=== PATIENT | male | born 1965 | race Hispanic/Latino ===

== ENCOUNTER 2017-11-28 08:52 | Outpatient (CLI) | payer OTHER ==
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
== END 2017-11-28 08:53 | disposition home or self-care (01) ==
LOC: SCSMRI 08:52
PROVIDERS: ATTEND Orthopaedic Surgery Hand Surgery
DX: M79.2 Neuralgia and neuritis, unspecified (principal); M77.8 Other enthesopathies, not elsewhere classified; M19.041 Primary osteoarthritis, right hand; M25.741 Osteophyte, right hand

== ENCOUNTER 2019-04-20 07:43 | Inpatient (IN) | payer OTHER, SELFPAY ==
[2019-04-20] MEDS ORDERED: Adacel (T-DAP) 0.5 ML SYRINGE ONE (07:51)
[2019-04-20] MEDS ORDERED: Ketamine 50 MG/ML (10ML VIAL) ONE (08:04)
[2019-04-20] MEDS ORDERED: Rocuronium Bromide 10 MG/ML (10ML VIAL) ONE ×3 (08:04→10:38)
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
[2019-04-20 08:21] LABS: Mean Corpuscular HGB CONC 33.3 g/dL (32.0-36.0); Mean Corpuscular Hemoglobin 30.2 pg (27.0-31.0); Mean Corpuscular Volume 90.8 fL (78.0-98.0); Platelet Count 244 thou/uL (130-400); RBC Distribution Width 11.8 % (11.5-14.5); Red Blood Cell (RBC) Count 4.96 mill/uL (4.70-6.10)
[2019-04-20] MEDS ORDERED: Fentanyl 100 MCG/2 ML VIAL ONE ×3 (08:23→08:55)
[2019-04-20 08:28] LABS: PTT 21.7 SEC (22.9-36.1); Prothrombin Time 13.6 SEC (12.0-14.7)
[2019-04-20 08:32] LABS: Actual Bicarbonate (HCO3a) 19.3 mEq/L (22-28); Analyzer IN Cardio ER; Base Excess (BEa) -8.2 mEq/L (-2.0 to +3.0); CO2 Tension 46.9 mmHg (35.0-45.0); Calcium, Ionized 1.14 mmol/L (1.12-1.30); Carboxyhemoglobin (COHb) 0.7 gm% (0.0-3.0); Hemoglobin (Hb) 15.9 g/dL (14.0-18.0); O2 Tension (PaO2) 73.7 mmHg (80.0-100.0); Potassium - ABG Lab 3.31 mmol/L (3.70-5.30)
[2019-04-20 08:36] LABS: Band 13 % (5-11); Lymphocytes 13 % (21-51); MDiff Complete? YES; Monocytes 5 % (0-10); Neutrophil 69 % (42-75); Platelet Morphology Comment Appears Adequate; RBC Morphology Normal
[2019-04-20 08:39] LABS: ALT (SGPT) 181 U/L (8-55); AST (SGOT) 188 U/L (5-34); Albumin 3.8 g/dL (3.5-5.0); Alkaline Phosphatase 75 U/L (40-110); Anion Gap 18 mmol/L (10-20); BUN (Urea Nitrogen) 19 mg/dL (8.4-25.7); Bilirubin, Total 0.5 mg/dL (0.2-1.2); Calc. Creatinine Clearance 0 mL/min (70-130); Calcium 7.9 mg/dL (7.8-10.44); Carbon Dioxide 19 mmol/L (22-29); Chloride 105 mmol/L (98-107); Estimated GFR-MDRD 41; Globulin 2.8 g/dL (2.4-3.5); Glucose 205 mg/dL (70-105); Potassium 4.5 mmol/L (3.5-5.1); Protein, Total 6.6 g/dL (6.0-8.3); Sodium 137 mmol/L (136-145)
[2019-04-20] MEDS ORDERED: Gentamicin Sulfate 300 MG in Sodium Chloride 0.9% 100 ML IVPB SCH (08:45)
[2019-04-20 08:48] LABS: Lactic Acid 7.9 mmol/L (0.5-2.2)
[2019-04-20 09:14] LABS: Base Excess-Venous -8.7 mmol/L (-2.0 to 3.0); Bicarbonate (HCO3v) 18.7 mmol/L (22.0-28.0); CO2 Tension (PvCO2) 44.6 mmHg (40.0-50.0); Calcium, Ionized 0.93 mmol/L (See Comments:); Chloride 105 mmol/L (98-107); Hemoglobin - Calc 14.9 g/dL (14.0-18.0); Potassium 4.5 mmol/L (3.5-5.1); Sodium 137 mmol/L (138-145); vO2 Saturation-calc 96.9 % (60.0-85.0)
[2019-04-20 09:42] LABS: pH, Arterial 7.23 (7.35-7.45)
[2019-04-20 09:43] LABS: ALV-art Gradient 295.475 (0-20); Puncture Site LFA
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
--- NOTE | 2019-04-20 10:08 | RAD ---
AP PELVIS: History: Pain. FINDINGS/IMPRESSION: No definite fracture or dislocation is identified. POS: H
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
[2019-04-20] MEDS ORDERED: Lidocaine 1% PF 5 ML VIAL ONE (10:38)
[2019-04-20] MEDS ORDERED: PHENYLEPHRINE-NS 100 MCG/ML 10 ML SYRINGE ONE ×2 (10:38)
[2019-04-20] MEDS ORDERED: PROPOFOL 200 MG/20 ML VIAL ONE (10:38)
[2019-04-20] MEDS ORDERED: Vecuronium 10 MG VIAL ONE (10:38)
[2019-04-20] MEDS: Sodium Chloride 0.9% 1,000 ML IV SCH ×3 (10:40→19:54)
[2019-04-20] MEDS ORDERED: Sterile Water 10 ML VIAL FS SCH (10:45)
[2019-04-20] MEDS ORDERED: Vecuronium 10 MG VIAL IV SCH ×2 (10:45)
[2019-04-20] MEDS ORDERED: Fentanyl 100 MCG/2 ML VIAL SLOW IVP SCH (10:45)
[2019-04-20 10:52] LABS: Actual Bicarbonate (HCO3a) 18.9 mEq/L (22-28); Base Excess (BEa) -9.3 mEq/L (-2.0 to +3.0); CO2 Tension 51.1 mmHg (35.0-45.0); Calcium, Ionized 1.09 mmol/L (1.12-1.30); Carboxyhemoglobin (COHb) 0.6 gm% (0.0-3.0); Hemoglobin (Hb) 12.8 g/dL (14.0-18.0); O2 Tension (PaO2) 73.1 mmHg (80.0-100.0); Potassium - ABG Lab 3.54 mmol/L (3.70-5.30)
[2019-04-20 10:55] LABS: pH, Arterial 7.19 (7.35-7.45)
[2019-04-20 10:56] LABS: ALV-art Gradient 148.225 (0-20); Puncture Site LRAD
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
[2019-04-20] MEDS ORDERED: Calcium Chloride 1 GM/10 ML Abboject SYRINGE IVP SCH ×2 (11:45→21:15)
[2019-04-20] MEDS ORDERED: Iopamidol-370 76% 500 ML 1 ML ONE (11:58)
[2019-04-20 12:03] LABS: Lactic Acid 4.1 mmol/L (0.5-2.2)
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
[2019-04-20] MEDS: fentaNYL Citrate/PF 2,000 MCG in Sodium Chloride 0.9% 60 ML IV SCH (12:39)
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
[2019-04-20] MEDS ORDERED: Fentanyl 250 MCG/5 ML VIAL ONE (13:10)
[2019-04-20] MEDS ORDERED: Phenylephrine 10 MG/ML VIAL ONE (14:39)
[2019-04-20] MEDS ORDERED: Albumin 5% 500 ML ONE ×2 (14:39→15:34)
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
[2019-04-20] MEDS ORDERED: Sodium Bicarb 50 MEQ/50 ML VIAL ONE ×2 (14:55→15:56)
[2019-04-20] MEDS ORDERED: Sodium Bicarbonate 2.5 MEQ/5 ML VIAL ONE (14:56)
[2019-04-20] MEDS ORDERED: Dextrose 5% in Water 1,000 ML IV PRN (16:42)
[2019-04-20] MEDS ORDERED: hydrALAZINE 20 MG/ML VIAL SLOW IVP PRN (16:42)
[2019-04-20] MEDS ORDERED: Ondansetron PF 4 MG/2 ML Vial IVP PRN (16:42)
[2019-04-20] MEDS ORDERED: Dextrose 50% Abboject 50 ML SYRINGE SLOW IVP PRN (16:42)
[2019-04-20] MEDS ORDERED: Morphine 2 MG/ML SYRINGE SLOW IVP PRN (16:42)
[2019-04-20] MEDS ORDERED: Sodium Chloride 0.9% 1,000 ML IV SCH (16:45)
[2019-04-20] MEDS ORDERED: Lactated Ringer's 1,000 ML IV SCH (17:45)
[2019-04-20 18:13] LABS: Hemoglobin 11.6 g/dL (14.0-18.0)
[2019-04-20 18:19] LABS: Phosphorus 3.2 mg/dL (2.3-4.7)
[2019-04-20] MEDS ORDERED: Communication Order-Pharmacy FS PRN (18:19)
[2019-04-20 18:21] LABS: Anion Gap 14 mmol/L (10-20); BUN (Urea Nitrogen) 18 mg/dL (8.4-25.7); Calc. Creatinine Clearance 142 mL/min (70-130); Calcium 7.4 mg/dL (7.8-10.44); Carbon Dioxide 19 mmol/L (22-29); Chloride 111 mmol/L (98-107); Estimated GFR-MDRD 61; Glucose 152 mg/dL (70-105); Lactic Acid 4.9 mmol/L (0.5-2.2); Magnesium 1.5 mg/dL (1.6-2.6); Potassium 5.3 mmol/L (3.5-5.1); Sodium 139 mmol/L (136-145)
[2019-04-20 18:34] LABS: CK (CPK) 5742 U/L (30-200)
--- NOTE | 2019-04-20 19:06 | RAD ---
EXAM: INTRAOPERATIVE FLUOROSCOPY: 04/20/19 HISTORY: Right ankle ORIF. EXPOSURE: 56.5 seconds. 2.22 mGy. FINDINGS: Two intraoperative fluoroscopic views demonstrate external fixation hardware. Comminuted distal fibul a and tibia fracture. IMPRESSION: Intraoperative fluoroscopy as above. POS: OFF
--- NOTE | 2019-04-20 19:08 | RAD ---
EXAM: INTRAOPERATIVE FLUOROSCOPY 04/20/19 HISTORY: ORIF, right femur. FINDINGS: Eight intraoperative fluoroscopic views demonstrate placement of an internal fixation plate traversin g the right femur. Fracture fragments and fracture lucency identified. Near anatomic alignment. EXPOSURE: 247.6 seconds. 40.26 mGy. IMPRESSION: Intraoperative fluoroscopy as above. POS: OFF
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
--- NOTE | 2019-04-20 19:37 | RAD ---
EXAM: INTRAOPERATIVE FLUOROSCOPY: 04/20/19 HISTORY: Closed reduction. EXPOSURE: 4.5 seconds. 0.2 mGy. FINDINGS: A single fluoroscopic view demonstrates dislocation at the level of the ankle. IMPRESSION: Intraoperative fluoroscopy as above. POS: OFF
[2019-04-20] MEDS ORDERED: Ventilator Sedation Protocol 1 EACH FS SCH (19:45)
[2019-04-20] MEDS ORDERED: Magnesium 2 GM/50 ML 2 GM in Premix Bag 1 BAG IVPB SCH (19:45)
[2019-04-20] MEDS ORDERED: Magnesium Sulfate 2 GM in Sodium Chloride 0.9% 100 ML IVPB SCH (19:45)
[2019-04-20] MEDS ORDERED: Propofol BOLUS 1,000 MG/100 ML VIAL IV PRN (19:46)
[2019-04-20] MEDS: Propofol 1,000 MG/100 ML VIAL IV PRN (19:54)
[2019-04-20] MEDS: cefTRIAXone\\ROCEPHIN 2 GM in Sodium Chloride 0.9% 100 ML IVPB SCH (20:02)
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
[2019-04-20 20:24] LABS: Actual Bicarbonate (HCO3a) 19.1 mEq/L (22-28); Base Excess (BEa) -5.8 mEq/L (-2.0 to +3.0); CO2 Tension 35.5 mmHg (35.0-45.0); Calcium, Ionized 1.02 mmol/L (1.12-1.30); Carboxyhemoglobin (COHb) 0.9 gm% (0.0-3.0); Hemoglobin (Hb) 11.3 g/dL (14.0-18.0); O2 Tension (PaO2) 120.2 mmHg (80.0-100.0); Potassium - ABG Lab 4.56 mmol/L (3.70-5.30); pH, Arterial 7.35 (7.35-7.45)
[2019-04-20 20:25] LABS: Puncture Site ALINE
[2019-04-20 20:26] LABS: ALV-art Gradient 120.625 (0-20)
[2019-04-20] MEDS: Famotidine/PF 20 mg/2ml Vial SLOW IVP SCH (20:32)
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
[2019-04-20] MEDS ORDERED: TETANUS AND DIPHTHERIA TOX/PF 0.5 ML DISP.SYRIN IM SCH (21:00)
[2019-04-20] MEDS ORDERED: Bacitracin 1 PK TOP SCH (21:00)
[2019-04-20] MEDS: Silver Sulfadiazine 50 GM TUBE TOP SCH (21:11)
[2019-04-20] MEDS: Bacitracin Zinc Ointment 30 gm TUBE TOP SCH (21:11)
[2019-04-21] MEDS: Acetaminophen 650 MG Suppository PR SCH ×4 (00:12→17:53)
[2019-04-21] MEDS: Propofol 1,000 MG/100 ML VIAL IV PRN ×3 (01:10→11:06)
[2019-04-21] MEDS: Sodium Chloride 0.9% 1,000 ML IV SCH ×6 (01:12→22:53)
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
[2019-04-21] MEDS: Morphine 4 MG/ML VIAL SLOW IVP PRN ×3 (03:29→21:59)
[2019-04-21] MEDS: fentaNYL Citrate/PF 2,000 MCG in Sodium Chloride 0.9% 60 ML IV SCH (05:01)
[2019-04-21 05:30] LABS: Lactic Acid 2.9 mmol/L (0.5-2.2)
[2019-04-21 05:35] LABS: Anion Gap 13 mmol/L (10-20); BUN (Urea Nitrogen) 20 mg/dL (8.4-25.7); Calc. Creatinine Clearance 125 mL/min (70-130); Calcium 7.7 mg/dL (7.8-10.44); Carbon Dioxide 23 mmol/L (22-29); Chloride 110 mmol/L (98-107); Estimated GFR-MDRD 52; Glucose 115 mg/dL (70-105); Magnesium 1.6 mg/dL (1.6-2.6); Potassium 4.3 mmol/L (3.5-5.1); Sodium 142 mmol/L (136-145)
[2019-04-21 05:47] LABS: CK (CPK) 6279 U/L (30-200)
[2019-04-21 05:48] LABS: Phosphorus 2.6 mg/dL (2.3-4.7)
[2019-04-21 06:53] LABS: #Lymphocytes 1.5 thou/uL (1.20-3.40); #Monocytes 1.4 thou/uL (0.11-0.59); #Neutrophils 6.7 thou/uL (1.40-6.50); %Basophils 0.3 % (0.0-1.0); %Eosinophils 0.3 % (0.0-10.0); %Lymphocytes 15.5 % (21.0-51.0); %Monocytes 14.3 % (0.0-10.0); %Neutrophils 69.6 % (42.0-75.0); Hemoglobin 10.3 g/dL (14.0-18.0); Mean Corpuscular HGB CONC 35.5 g/dL (32.0-36.0); Mean Corpuscular Hemoglobin 31.4 pg (27.0-31.0); Mean Corpuscular Volume 88.7 fL (78.0-98.0); Mean Platelet Volume 8.4 fL (7.4-10.4); Platelet Count 114 thou/uL (130-400); RBC Distribution Width 13.3 % (11.5-14.5); Red Blood Cell (RBC) Count 3.27 mill/uL (4.70-6.10); White Blood Cell (WBC) Count 9.6 thou/uL (4.8-10.8)
[2019-04-21 06:54] LABS: Platelet Morphology Comment Appears Decreased
[2019-04-21 07:04] LABS: Actual Bicarbonate (HCO3a) 22.6 mEq/L (22-28); Base Excess (BEa) -1.5 mEq/L (-2.0 to +3.0); CO2 Tension 35.4 mmHg (35.0-45.0); Calcium, Ionized 1.06 mmol/L (1.12-1.30); Carboxyhemoglobin (COHb) 1.2 gm% (0.0-3.0); Hemoglobin (Hb) 9.9 g/dL (14.0-18.0); Potassium - ABG Lab 4.21 mmol/L (3.70-5.30); pH, Arterial 7.42 (7.35-7.45)
[2019-04-21 07:05] LABS: Puncture Site ALINE
[2019-04-21] MEDS ORDERED: Magnesium Sulfate 2 GM in Sodium Chloride 0.9% 100 ML IVPB SCH (08:00)
[2019-04-21] MEDS ORDERED: Calcium Chloride 1 GM/10 ML Abboject SYRINGE IVP SCH (08:00)
[2019-04-21] MEDS ORDERED: Magnesium 2 GM/50 ML 2 GM in Premix Bag 1 BAG IVPB SCH (08:15)
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
[2019-04-21] MEDS: Famotidine/PF 20 mg/2ml Vial SLOW IVP SCH ×2 (09:26→21:43)
[2019-04-21] MEDS: Silver Sulfadiazine 50 GM TUBE TOP SCH ×2 (09:27→21:44)
[2019-04-21] MEDS: Bacitracin Zinc Ointment 30 gm TUBE TOP SCH ×2 (09:27→21:44)
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
[2019-04-21] MEDS: cefTRIAXone\\ROCEPHIN 2 GM in Sodium Chloride 0.9% 100 ML IVPB SCH (20:29)
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
[2019-04-21] MEDS: Acetaminophen 500 MG TAB PO SCH (21:43)
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
[2019-04-22 02:17] LABS: Bacteria/HPF None Seen HPF (None Seen); Bilirubin Negative (Negative); Blood, Urine 2+ (Negative); Clarity Clear (Clear); Glucose, Urine (Dipstick) Normal (Negative); Leukocyte 75 Leu/uL (Negative); Nitrite Negative (Negative); Protein, Urine (Dipstick) 50 mg/dL (Neg-Trace); Squamous Epithelial 0-3 HPF (0-3); Urobilinogen Normal mg/dL (Less than 2)
[2019-04-22] MEDS: Acetaminophen 500 MG TAB PO SCH ×4 (03:27→20:30)
[2019-04-22] MEDS: Sodium Chloride 0.9% 1,000 ML IV SCH ×4 (03:29→15:40)
[2019-04-22] MEDS ORDERED: Sodium Chloride For Inhalation 0.9% 3 ML NEB ONE (04:37)
[2019-04-22 04:55] LABS: Anion Gap 10 mmol/L (10-20); BUN (Urea Nitrogen) 21 mg/dL (8.4-25.7); Calc. Creatinine Clearance 140 mL/min (70-130); Calcium 7.3 mg/dL (7.8-10.44); Carbon Dioxide 22 mmol/L (22-29); Chloride 113 mmol/L (98-107); Estimated GFR-MDRD 60; Glucose 126 mg/dL (70-105); Magnesium 1.9 mg/dL (1.6-2.6); Phosphorus 1.6 mg/dL (2.3-4.7); Sodium 141 mmol/L (136-145)
[2019-04-22] MEDS ORDERED: Sodium Phosphate 30 MMOL in Sodium Chloride 0.9% 250 ML 250 ML IVPB SCH ×2 (05:00→06:15)
[2019-04-22 05:04] LABS: CK (CPK) 4604 U/L (30-200)
[2019-04-22 05:22] LABS: Mean Corpuscular Volume 88.5 fL (78.0-98.0)
[2019-04-22 05:32] LABS: Band 7 % (5-11); Eosinophils 1 % (0-10); Hemoglobin 7.3 g/dL (14.0-18.0); Lymphocytes 18 % (21-51); MDiff Complete? YES; Mean Corpuscular HGB CONC 35.2 g/dL (32.0-36.0); Mean Corpuscular Hemoglobin 31.1 pg (27.0-31.0); Mean Platelet Volume 8.9 fL (7.4-10.4); Monocytes 10 % (0-10); Neutrophil 63 % (42-75); Platelet Count 79 thou/uL (130-400); Platelet Morphology Comment Appears Decreased; RBC Distribution Width 12.7 % (11.5-14.5); Reactive Lymphocytes 1 % (0-10); Red Blood Cell (RBC) Count 2.34 mill/uL (4.70-6.10); White Blood Cell (WBC) Count 8.4 thou/uL (4.8-10.8)
[2019-04-22 07:04] LABS: Actual Bicarbonate (HCO3a) 20.6 mEq/L (22-28); Base Excess (BEa) -3.3 mEq/L (-2.0 to +3.0); CO2 Tension 31.6 mmHg (35.0-45.0); Calcium, Ionized 1.05 mmol/L (1.12-1.30); Carboxyhemoglobin (COHb) 2.7 gm% (0.0-3.0); O2 Tension (PaO2) 148.5 mmHg (80.0-100.0); Potassium - ABG Lab 3.81 mmol/L (3.70-5.30); pH, Arterial 7.43 (7.35-7.45)
[2019-04-22 07:05] LABS: Puncture Site ALINE
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
[2019-04-22] MEDS: Famotidine/PF 20 mg/2ml Vial SLOW IVP SCH ×2 (08:28→20:30)
[2019-04-22 09:06] LABS: INR-International Normal Ratio 1.3; PTT 30.4 SEC (22.9-36.1); Prothrombin Time 15.9 SEC (12.0-14.7)
[2019-04-22] MEDS ORDERED: Vecuronium 10 MG VIAL ONE (09:59)
[2019-04-22] MEDS ORDERED: Rocuronium Bromide 10 MG/ML (10ML VIAL) ONE (09:59)
[2019-04-22] MEDS ORDERED: PROPOFOL 200 MG/20 ML VIAL ONE (09:59)
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
[2019-04-22] MEDS ORDERED: Rocuronium Bromide 50 MG/5 ML VIAL ONE (12:06)
[2019-04-22] MEDS ORDERED: CEFAZOLIN 2 GM in Premix Bag 1 BAG IVPB SCH (12:15)
[2019-04-22] MEDS ORDERED: Midazolam HCl 2 mg/2 ml Vial ONE (12:16)
[2019-04-22] MEDS: Bacitracin Zinc Ointment 30 gm TUBE TOP SCH ×2 (12:19→20:31)
[2019-04-22] MEDS: Silver Sulfadiazine 50 GM TUBE TOP SCH ×2 (12:19→20:31)
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
[2019-04-22] MEDS ORDERED: Levofloxacin 500 mg/D5W 100 ml Premix Bag ONE (13:04)
[2019-04-22] MEDS ORDERED: Fentanyl 100 MCG/2 ML VIAL ONE ×2 (13:36→17:16)
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
--- NOTE | 2019-04-22 17:39 | RAD ---
INTRAOPERATIVE FLUOROSCOPY OF THE RIGHT ELBOW, FOUR VIEWS: HISTORY: Evaluate for retained suture needle COMPARISON: None FINDINGS: Four views demonstrate a metallic plate with multiple screws traversing the proximal ulna. Multiple skin j carlos are noted. No evidence of a metallic suture. IMPRESSION: 1. No evidence of metallic suture. Results study conveyed to Dr. Go 04/22/2019 5:39 PM Code CR Transcribed Date/Time: 04/22/2019 5:48 PM
--- NOTE | 2019-04-22 17:41 | RAD ---
Exam:Intraprocedure fluoroscopy HISTORY: Evaluate for retained suture needle. Accurate needle count Exposure: 43.7 seconds, 5.01 mg COMPARISON: None FINDINGS: 3 intraoperative fluoroscopic views demonstrate tracks from previous screws at the level of the distal tibia and fibula. There are 2 screws at the level of the medial malleolus. Metallic side plate with multiple screws at the level of the distal fibula. Fibular fracture is identified. No evidence of a radiopaque suture needle IMPRESSION: No evidence of a radiopaque suture needle Results study discussed with Dr. Go 04/22/2028 code CR Transcribed Date/Time: 04/22/2019 5:49 PM
[2019-04-22] MEDS: fentaNYL Citrate/PF 2,000 MCG in Sodium Chloride 0.9% 60 ML IV SCH (17:48)
--- NOTE | 2019-04-22 18:10 | RAD ---
Exam:2 views left ankle HISTORY: ORIF. Assess for retained suture needle COMPARISON: 04/22/2019 fluoroscopy FINDINGS: 2 portable views left ankle demonstrate a metallic side plate at the distal fibula. Associa domingo fracture. 2 screws traverse the medial malleolus. There are 2 symmetric densities along the distal aspect of the tibia and fibula. Multiple skin j carlos are noted. No radiographic evidence of a suture. Evaluation of the fine bony detail is limited by fiberglass cast. IMPRESSION: As above. Transcribed Date/Time: 04/22/2019 6:22 PM
--- NOTE | 2019-04-22 18:11 | RAD ---
TWO VIEWS RIGHT ELBOW: HISTORY: ORIF. Inaccurate suture count. Evaluate for retained suture. COMPARISON: None FINDINGS: 2 views right elbow demonstrate a internal fixation plate with multiple screws at the level of the olecranon and proximal ulna. Near anatomic alignment. Fracture lucency is noted. No evidence of a retained metallic suture. Limited evaluation due to posterior fiberglass splint. Skin s taples are identified. IMPRESSION: As above. Transcribed Date/Time: 04/22/2019 6:23 PM
[2019-04-22] MEDS: cefTRIAXone\\ROCEPHIN 2 GM in Sodium Chloride 0.9% 100 ML IVPB SCH (19:51)
[2019-04-22 19:58] LABS: #Eosinphils 0.1 thou/uL (0.0-0.7); #Lymphocytes 0.9 thou/uL (1.20-3.40); #Monocytes 0.6 thou/uL (0.11-0.59); #Neutrophils 6.9 thou/uL (1.40-6.50); %Eosinophils 0.8 % (0.0-10.0); %Lymphocytes 10.7 % (21.0-51.0); %Monocytes 7.1 % (0.0-10.0); %Neutrophils 81.4 % (42.0-75.0); Hemoglobin 7.5 g/dL (14.0-18.0); INR-International Normal Ratio 1.2; Mean Corpuscular HGB CONC 34.9 g/dL (32.0-36.0); Mean Corpuscular Hemoglobin 31.1 pg (27.0-31.0); Mean Platelet Volume 8.4 fL (7.4-10.4); Platelet Count 86 thou/uL (130-400); Prothrombin Time 15.1 SEC (12.0-14.7); RBC Distribution Width 12.6 % (11.5-14.5); Red Blood Cell (RBC) Count 2.41 mill/uL (4.70-6.10); White Blood Cell (WBC) Count 8.5 thou/uL (4.8-10.8)
[2019-04-22] MEDS ORDERED: Propofol 1,000 MG/100 ML VIAL IV PRN (20:09)
[2019-04-22] MEDS ORDERED: Propofol BOLUS 1,000 MG/100 ML VIAL IV PRN (20:09)
[2019-04-22 20:10] LABS: Anion Gap 10 mmol/L (10-20); BUN (Urea Nitrogen) 16 mg/dL (8.4-25.7); Calc. Creatinine Clearance 176 mL/min (70-130); Calcium 7.2 mg/dL (7.8-10.44); Carbon Dioxide 23 mmol/L (22-29); Chloride 114 mmol/L (98-107); Estimated GFR-MDRD 78; Glucose 128 mg/dL (70-105); Magnesium 1.9 mg/dL (1.6-2.6); Potassium 4.1 mmol/L (3.5-5.1); Sodium 143 mmol/L (136-145)
[2019-04-22] MEDS ORDERED: Ventilator Sedation Protocol FS SCH (20:15)
--- NOTE | 2019-04-22 20:34 | RAD ---
CHEST ONE VIEW: HISTORY:Low O2 saturation Comparison: 04/22/2019 4:49 AM FINDINGS: Cardiac silhouette:Magnification the cardiac silhouette likely due to technique Aorta: Unremarkable Lines and tubes: Nasogastric tube appears to extend beyond the diaphragm. Distal tip is obscured. End otracheal tube at the level of clavicles Pulmonary vessels: Normal Costophrenic angles: Possible left-sided pleural effusion LUNGS: Consolidation of the right upper lobe may represent atelectasis, aspiration or contusion. Pers istent opacification left lung base may be due to aspiration, atelectasis or contusion. Overall, diminished lung volumes Pneumothorax: None Osseous abnormalities: None IMPRESSION: 1. Opacification the left lung base due to pleural effusion with parenchymal opacity due to atelectas is, aspiration or contusion. 2. Increased opacity in the right upper lobe due to atelectasis, aspiration or contusion. 3. Overall, diminished lung volumes Transcribed Date/Time: 04/22/2019 10:17 PM
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
[2019-04-23] MEDS: Sodium Chloride 0.9% 1,000 ML IV SCH ×2 (00:05→08:16)
[2019-04-23] MEDS: Acetaminophen 650 MG/20.3 ML UDCUP PO SCH ×4 (03:13→21:20)
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
[2019-04-23 06:02] LABS: Anion Gap 11 mmol/L (10-20); BUN (Urea Nitrogen) 16 mg/dL (8.4-25.7); Calc. Creatinine Clearance 170 mL/min (70-130); Calcium 7.1 mg/dL (7.8-10.44); Carbon Dioxide 23 mmol/L (22-29); Chloride 114 mmol/L (98-107); Estimated GFR-MDRD 74; Glucose 116 mg/dL (70-105); Magnesium 1.9 mg/dL (1.6-2.6); Potassium 3.9 mmol/L (3.5-5.1); Sodium 144 mmol/L (136-145)
[2019-04-23 06:03] LABS: Hemoglobin 7.4 g/dL (14.0-18.0); Mean Corpuscular HGB CONC 34.2 g/dL (32.0-36.0); Mean Corpuscular Hemoglobin 30.6 pg (27.0-31.0); Mean Corpuscular Volume 89.6 fL (78.0-98.0); Mean Platelet Volume 9.4 fL (7.4-10.4); Platelet Count 86 thou/uL (130-400); RBC Distribution Width 12.6 % (11.5-14.5); White Blood Cell (WBC) Count 7.5 thou/uL (4.8-10.8)
[2019-04-23 06:15] LABS: CK (CPK) 4864 U/L (30-200)
[2019-04-23 06:41] LABS: Band 9 % (5-11); Eosinophils 3 % (0-10); Lymphocytes 8 % (21-51); MDiff Complete? YES; Monocytes 6 % (0-10); Neutrophil 74 % (42-75); Platelet Morphology Comment Appears Decreased
[2019-04-23] MEDS ORDERED: Vecuronium 10 MG VIAL ONE (08:00)
[2019-04-23] MEDS ORDERED: Midazolam HCl 2 mg/2 ml Vial ONE (08:00)
--- NOTE | 2019-04-23 08:03 | RAD ---
RIGHT ELBOW 3 VIEWS: Three fluorosocpic views taken in OR. INDICATION: Open reduction internal fixation right elbow. FINDINGS/IMPRESSION: These views demonstrate plate and screws transfixing the proximal ulna. POS: C
--- NOTE | 2019-04-23 08:04 | RAD ---
LEFT ANKLE 4 VIEWS: HISTORY: Postop. The reason given for exam is lost needle. FINDINGS/IMPRESSION: Postoperative changes are noted at the ankle. Plate and screws transfix the distal fibula and there are screws transfixing the distal tibia. There are skin j carlos. No evidence of needle within the s oft tissues. POS: [facility]
[2019-04-23 08:17] LABS: Actual Bicarbonate (HCO3a) 22.6 mEq/L (22-28); Base Excess (BEa) -1.7 mEq/L (-2.0 to +3.0); CO2 Tension 35.7 mmHg (35.0-45.0); Carboxyhemoglobin (COHb) 1.8 gm% (0.0-3.0); O2 Tension (PaO2) 129.7 mmHg (80.0-100.0); Potassium - ABG Lab 3.84 mmol/L (3.70-5.30); pH, Arterial 7.42 (7.35-7.45)
[2019-04-23 08:19] LABS: ALV-art Gradient 146.525 (0-20); Puncture Site ALINE
[2019-04-23] MEDS: Bacitracin Zinc Ointment 30 gm TUBE TOP SCH ×2 (08:37→21:21)
[2019-04-23] MEDS: Famotidine/PF 20 mg/2ml Vial SLOW IVP SCH ×2 (08:38→21:21)
[2019-04-23] MEDS: Silver Sulfadiazine 50 GM TUBE TOP SCH ×2 (08:38→21:21)
[2019-04-23] MEDS ORDERED: Calcium Chloride 13.6 MEQ in Sodium Chloride 0.9% 100 ML IVPB ONE (08:45)
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
[2019-04-23] MEDS ORDERED: Midazolam HCl 2 mg/2 ml Vial IVP PRN (09:10)
[2019-04-23] MEDS ORDERED: Vecuronium 10 MG VIAL IV SCH (09:15)
--- NOTE | 2019-04-23 09:18 | RAD ---
AP CHEST: HISTORY: Respiratory failure. COMPARISON: 04/22/2019. FINDINGS: There is now complete opacification of the right upper lobe which has occurred since the prior study. Findings indicate new right upper lobe atelectasis and consolidation. Left lung is aerated. Right lower lobe is aerated. ET tube and NG tube remain in place. IMPRESSION: Complete opacification of the right upper lobe has now occurred indicating complete right upper lobe atelectasis associated within right upper lobe infiltrate. Hilar mass lesion not excluded. POS: C
[2019-04-23] MEDS: Sodium Chloride 0.45% 1,000 ML IV SCH ×2 (09:29→15:06)
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
[2019-04-23] MEDS: fentaNYL Citrate/PF 2,000 MCG in Sodium Chloride 0.9% 60 ML IV SCH (14:43)
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
[2019-04-24] MEDS: Sodium Chloride 0.45% 1,000 ML IV SCH ×3 (01:33→14:49)
[2019-04-24] MEDS: Acetaminophen 650 MG/20.3 ML UDCUP PO SCH ×4 (03:45→21:57)
[2019-04-24 04:31] LABS: Anion Gap 12 mmol/L (10-20); BUN (Urea Nitrogen) 17 mg/dL (8.4-25.7); CK (CPK) 3468 U/L (30-200); Calc. Creatinine Clearance 206 mL/min (70-130); Calcium 7.5 mg/dL (7.8-10.44); Carbon Dioxide 21 mmol/L (22-29); Chloride 114 mmol/L (98-107); Estimated GFR-MDRD 83; Glucose 110 mg/dL (70-105); Phosphorus 2.6 mg/dL (2.3-4.7); Potassium 3.9 mmol/L (3.5-5.1); Sodium 143 mmol/L (136-145)
[2019-04-24 05:28] LABS: Band 20 % (5-11); Eosinophils 1 % (0-10); Hemoglobin 6.6 g/dL (14.0-18.0); Lymphocytes 13 % (21-51); MDiff Complete? YES; Mean Corpuscular HGB CONC 34.8 g/dL (32.0-36.0); Mean Corpuscular Hemoglobin 31.3 pg (27.0-31.0); Mean Corpuscular Volume 89.9 fL (78.0-98.0); Mean Platelet Volume 9.4 fL (7.4-10.4); Monocytes 4 % (0-10); Neutrophil 62 % (42-75); Platelet Count 129 thou/uL (130-400); RBC Distribution Width 12.6 % (11.5-14.5); Red Blood Cell (RBC) Count 2.12 mill/uL (4.70-6.10)
[2019-04-24] MEDS: fentaNYL Citrate/PF 2,000 MCG in Sodium Chloride 0.9% 60 ML IV SCH ×2 (06:12→22:07)
[2019-04-24 07:21] LABS: Base Excess (BEa) -2.7 mEq/L (-2.0 to +3.0); CO2 Tension 36.9 mmHg (35.0-45.0); Calcium, Ionized 1.05 mmol/L (1.12-1.30); Carboxyhemoglobin (COHb) 2.7 gm% (0.0-3.0); Hemoglobin (Hb) 6.3 g/dL (14.0-18.0); O2 Tension (PaO2) 138.1 mmHg (80.0-100.0); Potassium - ABG Lab 3.76 mmol/L (3.70-5.30); pH, Arterial 7.39 (7.35-7.45)
[2019-04-24 07:24] LABS: Puncture Site ALINE
[2019-04-24 07:25] LABS: ALV-art Gradient 172.275 (0-20)
--- NOTE | 2019-04-24 09:18 | RAD ---
SINGLE VIEW OF THE CHEST: COMPARISON: 04/23/2019. HISTORY: Intubated patient with respiratory failure. FINDINGS: A single view of the chest shows an enlarged but stable cardiomediastinal silhouette. The endotrache al tube and NG tube are unchanged in position. There is airspace opacity projecting over the right u pper lobe which may represent atelectasis in the inferior aspect of the right upper lobe. IMPRESSION: Right upper lobe atelectasis. The aeration has improved compared to the prior examination. POS: [facility]
[2019-04-24] MEDS: Ascorbic Acid 500 mg Chewable Tablet PO SCH ×2 (09:33→21:57)
[2019-04-24] MEDS: Senokot S 8.6-50 MG TAB PO SCH ×2 (09:33→21:58)
[2019-04-24] MEDS: Polyethylene Glycol 3350 17 GM Packet PO SCH (09:33)
[2019-04-24] MEDS: Famotidine/PF 20 mg/2ml Vial SLOW IVP SCH ×2 (09:39→21:57)
[2019-04-24] MEDS: Silver Sulfadiazine 50 GM TUBE TOP SCH ×2 (09:39→21:59)
[2019-04-24] MEDS: Bacitracin Zinc Ointment 30 gm TUBE TOP SCH ×2 (09:40→21:59)
[2019-04-24] MEDS ORDERED: Rocuronium Bromide 10 MG/ML (10ML VIAL) ONE (10:06)
[2019-04-24] MEDS ORDERED: Ondansetron PF 4 MG/2 ML Vial ONE (10:06)
[2019-04-24] MEDS ORDERED: Dexamethasone 20 MG/5 ML VIAL ONE (10:06)
[2019-04-24] MEDS ORDERED: Fentanyl 250 MCG/5 ML VIAL ONE (10:57)
[2019-04-24] MEDS ORDERED: Promethazine HCl 25 MG/ML VIAL IM PRN (11:27)
[2019-04-24] MEDS ORDERED: Promethazine HCl 25 MG/ML VIAL SLOW IVP PRN (11:27)
[2019-04-24] MEDS ORDERED: Ondansetron HCl/PF 4 MG/2 ML Vial IVP PRN (11:27)
[2019-04-24] MEDS ORDERED: cefTRIAXone\\ROCEPHIN 1 GM VIAL ONE (13:10)
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
[2019-04-24] MEDS: Furosemide 20 MG/2 ML VIAL SLOW IVP SCH (14:50)
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
[2019-04-24 16:50] LABS: Hemoglobin 7.2 g/dL (14.0-18.0); Platelet Count 151 thou/uL (130-400)
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
[2019-04-25] MEDS: Acetaminophen 650 MG/20.3 ML UDCUP PO SCH ×4 (03:52→21:54)
[2019-04-25 05:05] LABS: Hemoglobin 7.5 g/dL (14.0-18.0); Mean Corpuscular HGB CONC 34.2 g/dL (32.0-36.0); Mean Corpuscular Hemoglobin 30.7 pg (27.0-31.0); Mean Corpuscular Volume 89.8 fL (78.0-98.0); Mean Platelet Volume 8.7 fL (7.4-10.4); Platelet Count 180 thou/uL (130-400); RBC Distribution Width 13.2 % (11.5-14.5); Red Blood Cell (RBC) Count 2.44 mill/uL (4.70-6.10); White Blood Cell (WBC) Count 9.3 thou/uL (4.8-10.8)
[2019-04-25 05:06] LABS: Band 5 % (5-11); Lymphocytes 9 % (21-51); MDiff Complete? YES; Monocytes 7 % (0-10); Myelocyte 1 % (0-0); Neutrophil 78 % (42-75)
[2019-04-25 05:28] LABS: Anion Gap 13 mmol/L (10-20); BUN (Urea Nitrogen) 20 mg/dL (8.4-25.7); Calc. Creatinine Clearance 203 mL/min (70-130); Calcium 7.9 mg/dL (7.8-10.44); Carbon Dioxide 22 mmol/L (22-29); Chloride 111 mmol/L (98-107); Estimated GFR-MDRD 82; Glucose 153 mg/dL (70-105); Phosphorus 1.9 mg/dL (2.3-4.7); Potassium 3.9 mmol/L (3.5-5.1); Sodium 142 mmol/L (136-145)
[2019-04-25] MEDS ORDERED: Sodium Phosphate 30 MMOL in Sodium Chloride 0.9% 250 ML 250 ML IVPB SCH (05:45)
[2019-04-25] MEDS: Furosemide 20 MG/2 ML VIAL SLOW IVP SCH ×3 (06:09→21:27)
[2019-04-25 07:31] LABS: Actual Bicarbonate (HCO3a) 21.3 mEq/L (22-28); Base Excess (BEa) -2.1 mEq/L (-2.0 to +3.0); CO2 Tension 30.3 mmHg (35.0-45.0); Calcium, Ionized 1.07 mmol/L (1.12-1.30); Carboxyhemoglobin (COHb) 1.3 gm% (0.0-3.0); Hemoglobin (Hb) 7.9 g/dL (14.0-18.0); Potassium - ABG Lab 3.86 mmol/L (3.70-5.30); pH, Arterial 7.46 (7.35-7.45)
[2019-04-25 07:42] LABS: ALV-art Gradient 148.625 (0-20); Puncture Site ALINE
[2019-04-25] MEDS: Ascorbic Acid 500 mg Chewable Tablet PO SCH ×2 (08:45→22:04)
[2019-04-25] MEDS: Senokot S 8.6-50 MG TAB PO SCH ×2 (08:45→22:05)
[2019-04-25] MEDS: Famotidine/PF 20 mg/2ml Vial SLOW IVP SCH ×2 (08:45→21:26)
[2019-04-25] MEDS: Polyethylene Glycol 3350 17 GM Packet PO SCH (08:45)
[2019-04-25] MEDS: Bacitracin Zinc Ointment 30 gm TUBE TOP SCH ×2 (08:46→21:54)
[2019-04-25] MEDS: Silver Sulfadiazine 50 GM TUBE TOP SCH ×2 (08:46→21:54)
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
[2019-04-25] MEDS: fentaNYL Citrate/PF 2,000 MCG in Sodium Chloride 0.9% 60 ML IV SCH (09:22)
[2019-04-25] MEDS ORDERED: Rocuronium Bromide 50 MG/5 ML VIAL IVP SCH (10:15)
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
[2019-04-25] MEDS ORDERED: Morphine 2 MG/ML SYRINGE SLOW IVP PRN (17:50)
[2019-04-25] MEDS: Morphine 4 MG/ML VIAL SLOW IVP PRN (21:27)
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
[2019-04-26] MEDS: Morphine 4 MG/ML VIAL SLOW IVP PRN ×2 (01:38→19:23)
[2019-04-26] MEDS: Acetaminophen 650 MG/20.3 ML UDCUP PO SCH ×4 (03:17→20:13)
[2019-04-26 04:48] LABS: Anion Gap 10 mmol/L (10-20); BUN (Urea Nitrogen) 25 mg/dL (8.4-25.7); Calc. Creatinine Clearance 197 mL/min (70-130); Calcium 7.8 mg/dL (7.8-10.44); Carbon Dioxide 28 mmol/L (22-29); Chloride 110 mmol/L (98-107); Estimated GFR-MDRD 79; Glucose 111 mg/dL (70-105); Magnesium 1.9 mg/dL (1.6-2.6); Phosphorus 2.7 mg/dL (2.3-4.7); Potassium 3.7 mmol/L (3.5-5.1); Sodium 144 mmol/L (136-145)
[2019-04-26 06:12] LABS: Hemoglobin 7.2 g/dL (14.0-18.0); Mean Corpuscular Hemoglobin 30.2 pg (27.0-31.0); Mean Corpuscular Volume 91.8 fL (78.0-98.0); Platelet Count 246 thou/uL (130-400); RBC Distribution Width 13.6 % (11.5-14.5); Red Blood Cell (RBC) Count 2.39 mill/uL (4.70-6.10); White Blood Cell (WBC) Count 10.8 thou/uL (4.8-10.8)
[2019-04-26 06:21] LABS: Band 9 % (5-11); Lymphocytes 21 % (21-51); MDiff Complete? YES; Monocytes 8 % (0-10); Neutrophil 62 % (42-75)
--- NOTE | 2019-04-26 07:50 | RAD ---
Portable frontal chest radiograph: 04/26/2019 COMPARISON: 04/25/2019 HISTORY: Respiratory failure FINDINGS: Stable linear opacity in the mid right lung zone may signify pleural fluid in minor fissure or atelectatic change. Heart and mediastinal contours are stable. Mild nonspecific persistent airspace disease noted in the medial left lung base. Fracture of the humeral head noted on the right, incompletely assessed. IMPRESSION: No significant interval change.
[2019-04-26] MEDS ORDERED: Gabapentin 300 MG CAP PO SCH (09:00)
[2019-04-26] MEDS: Polyethylene Glycol 3350 17 GM Packet PO SCH (10:49)
[2019-04-26] MEDS: Enoxaparin Sodium 30 MG/0.3 ML SYRINGE SC SCH ×2 (10:50→20:18)
[2019-04-26] MEDS: Famotidine/PF 20 mg/2ml Vial SLOW IVP SCH ×2 (10:50→20:17)
[2019-04-26] MEDS: Bacitracin Zinc Ointment 30 gm TUBE TOP SCH (10:51)
[2019-04-26] MEDS: Ascorbic Acid 500 mg Chewable Tablet PO SCH ×2 (10:51→20:16)
[2019-04-26] MEDS: Senokot S 8.6-50 MG TAB PO SCH ×2 (10:51→20:16)
[2019-04-26] MEDS: Silver Sulfadiazine 50 GM TUBE TOP SCH ×2 (10:52→21:50)
[2019-04-26] MEDS: Gabapentin 300 MG CAP PO SCH ×3 (10:52→20:17)
[2019-04-26] MEDS: traMADol HCl 50 MG TAB PO SCH ×2 (14:08→17:07)
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
[2019-04-26] MEDS ORDERED: Enoxaparin Sodium 30 MG/0.3 ML SYRINGE SC SCH (21:00)
[2019-04-26] MEDS ORDERED: Bacitracin 1 PK TOP SCH (21:30)
[2019-04-26] MEDS: Melatonin 3 MG TAB PO PRN (21:49)
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
[2019-04-27] MEDS: traMADol HCl 50 MG TAB PO SCH ×4 (00:59→18:35)
[2019-04-27] MEDS: Acetaminophen 500 MG TAB PO SCH ×4 (01:00→21:42)
[2019-04-27] MEDS: Bacitracin Zinc Ointment 30 gm TUBE TOP SCH (02:57)
[2019-04-27 05:39] LABS: Platelet Count 354 thou/uL (130-400)
[2019-04-27] MEDS ORDERED: Bisacodyl 10 MG SUPP PR SCH (08:30)
[2019-04-27 08:33] LABS: Anion Gap 11 mmol/L (10-20); BUN (Urea Nitrogen) 17 mg/dL (8.4-25.7); Calc. Creatinine Clearance 234 mL/min (70-130); Calcium 8.1 mg/dL (7.8-10.44); Carbon Dioxide 28 mmol/L (22-29); Chloride 106 mmol/L (98-107); Estimated GFR-MDRD Greater than 90; Glucose 121 mg/dL (70-105); Magnesium 1.8 mg/dL (1.6-2.6); Phosphorus 2.9 mg/dL (2.3-4.7); Potassium 3.5 mmol/L (3.5-5.1); Sodium 141 mmol/L (136-145)
[2019-04-27] MEDS: Famotidine 20 MG TAB PO SCH ×2 (09:47→21:43)
[2019-04-27] MEDS: Senokot S 8.6-50 MG TAB PO SCH ×2 (09:47→21:44)
[2019-04-27] MEDS: Enoxaparin Sodium 30 MG/0.3 ML SYRINGE SC SCH ×2 (09:47→21:43)
[2019-04-27] MEDS: Polyethylene Glycol 3350 17 GM Packet PO SCH (09:47)
[2019-04-27] MEDS: Ascorbic Acid 500 mg Chewable Tablet PO SCH ×2 (09:48→21:42)
[2019-04-27] MEDS: Silver Sulfadiazine 50 GM TUBE TOP SCH ×2 (09:48→21:44)
[2019-04-27] MEDS: Gabapentin 300 MG CAP PO SCH ×3 (09:48→21:43)
[2019-04-27] MEDS: Bacitracin 1 PK TOP SCH ×2 (09:49→21:42)
[2019-04-28] MEDS: traMADol HCl 50 MG TAB PO SCH ×4 (00:07→18:02)
[2019-04-28] MEDS: Acetaminophen 500 MG TAB PO SCH ×4 (03:00→20:56)
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
[2019-04-28] MEDS: Enoxaparin Sodium 30 MG/0.3 ML SYRINGE SC SCH ×2 (09:02→20:57)
[2019-04-28] MEDS: Gabapentin 300 MG CAP PO SCH ×3 (09:02→20:57)
[2019-04-28] MEDS: Bacitracin 1 PK TOP SCH ×2 (09:03→20:56)
[2019-04-28] MEDS: Silver Sulfadiazine 50 GM TUBE TOP SCH ×2 (09:03→21:51)
[2019-04-28] MEDS: Ascorbic Acid 500 mg Chewable Tablet PO SCH ×2 (09:06→20:55)
[2019-04-28] MEDS: Famotidine 20 MG TAB PO SCH ×2 (09:06→20:56)
[2019-04-28] MEDS: Senokot S 8.6-50 MG TAB PO SCH ×2 (09:06→20:56)
[2019-04-28] MEDS: Polyethylene Glycol 3350 17 GM Packet PO SCH (09:06)
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
[2019-04-28] MEDS: Cyclobenzaprine 10 MG TAB PO PRN (20:55)
[2019-04-28] MEDS: Melatonin 3 MG TAB PO PRN (20:56)
[2019-04-29] MEDS: traMADol HCl 50 MG TAB PO SCH ×5 (00:06→23:36)
[2019-04-29] MEDS: Acetaminophen 500 MG TAB PO SCH ×4 (02:15→20:20)
[2019-04-29 05:33] LABS: Magnesium 1.8 mg/dL (1.6-2.6); Phosphorus 3.6 mg/dL (2.3-4.7)
[2019-04-29 05:40] LABS: Band 1 % (5-11); Hemoglobin 8.6 g/dL (14.0-18.0); Lymphocytes 12 % (21-51); MDiff Complete? YES; Mean Corpuscular HGB CONC 34.1 g/dL (32.0-36.0); Mean Corpuscular Volume 90.7 fL (78.0-98.0); Mean Platelet Volume 6.8 fL (7.4-10.4); Metamyelocyte 5 % (0-0); Monocytes 12 % (0-10); Neutrophil 70 % (42-75); Platelet Count 487 thou/uL (130-400); Platelet Morphology Comment Appears Increased; RBC Distribution Width 13.9 % (11.5-14.5); RBC Morphology Normal; Red Blood Cell (RBC) Count 2.77 mill/uL (4.70-6.10); White Blood Cell (WBC) Count 10.9 thou/uL (4.8-10.8)
[2019-04-29] MEDS: Gabapentin 300 MG CAP PO SCH (08:32)
[2019-04-29] MEDS: Enoxaparin Sodium 30 MG/0.3 ML SYRINGE SC SCH ×2 (08:32→20:21)
[2019-04-29] MEDS: Silver Sulfadiazine 50 GM TUBE TOP SCH ×2 (08:34→20:23)
[2019-04-29] MEDS: Bacitracin 1 PK TOP SCH ×2 (08:38→20:21)
[2019-04-29] MEDS: Ascorbic Acid 500 mg Chewable Tablet PO SCH ×2 (08:38→20:21)
[2019-04-29] MEDS: Polyethylene Glycol 3350 17 GM Packet PO SCH (08:39)
[2019-04-29] MEDS: Senokot S 8.6-50 MG TAB PO SCH ×2 (08:39→20:22)
[2019-04-29] MEDS: Famotidine 20 MG TAB PO SCH ×2 (08:39→20:21)
[2019-04-29] MEDS ORDERED: Gabapentin 300 MG CAP PO PRN (10:17)
[2019-04-29] MEDS: Ibuprofen 800 MG TAB PO SCH ×2 (12:05→18:07)
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
[2019-04-29] MEDS: Melatonin 3 MG TAB PO PRN (20:22)
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
[2019-04-30] MEDS: Acetaminophen 500 MG TAB PO SCH ×4 (03:10→20:37)
[2019-04-30] MEDS: Cyclobenzaprine 10 MG TAB PO PRN ×2 (03:55→16:30)
[2019-04-30] MEDS: Ibuprofen 800 MG TAB PO SCH ×3 (03:55→18:44)
[2019-04-30 05:55] LABS: #Eosinphils 0.3 thou/uL (0.0-0.7); #Lymphocytes 1.4 thou/uL (1.20-3.40); #Monocytes 0.9 thou/uL (0.11-0.59); #Neutrophils 7.2 thou/uL (1.40-6.50); %Basophils 0.5 % (0.0-1.0); %Eosinophils 3.3 % (0.0-10.0); %Lymphocytes 14.1 % (21.0-51.0); %Monocytes 9.5 % (0.0-10.0); %Neutrophils 72.7 % (42.0-75.0); Hemoglobin 8.9 g/dL (14.0-18.0); Mean Corpuscular HGB CONC 31.7 g/dL (32.0-36.0); Mean Corpuscular Hemoglobin 28.9 pg (27.0-31.0); Mean Corpuscular Volume 91.2 fL (78.0-98.0); Platelet Count 541 thou/uL (130-400); RBC Distribution Width 14.1 % (11.5-14.5); Red Blood Cell (RBC) Count 3.09 mill/uL (4.70-6.10); White Blood Cell (WBC) Count 9.9 thou/uL (4.8-10.8)
[2019-04-30] MEDS: traMADol HCl 50 MG TAB PO SCH ×4 (06:12→23:58)
[2019-04-30 06:14] LABS: Anion Gap 14 mmol/L (10-20); BUN (Urea Nitrogen) 23 mg/dL (8.4-25.7); Calc. Creatinine Clearance 216 mL/min (70-130); Calcium 8.6 mg/dL (7.8-10.44); Carbon Dioxide 26 mmol/L (22-29); Chloride 102 mmol/L (98-107); Estimated GFR-MDRD Greater than 90; Glucose 110 mg/dL (70-105); Magnesium 1.9 mg/dL (1.6-2.6); Phosphorus 3.8 mg/dL (2.3-4.7); Potassium 3.7 mmol/L (3.5-5.1); Sodium 138 mmol/L (136-145)
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
[2019-04-30] MEDS: Polyethylene Glycol 3350 17 GM Packet PO SCH (09:39)
[2019-04-30] MEDS: Bacitracin 1 PK TOP SCH ×2 (09:39→20:37)
[2019-04-30] MEDS: Senokot S 8.6-50 MG TAB PO SCH ×2 (09:39→20:37)
[2019-04-30] MEDS: Enoxaparin Sodium 30 MG/0.3 ML SYRINGE SC SCH ×2 (09:39→20:38)
[2019-04-30] MEDS: Famotidine 20 MG TAB PO SCH ×2 (09:39→20:38)
[2019-04-30] MEDS: Ascorbic Acid 500 mg Chewable Tablet PO SCH ×2 (09:40→20:37)
[2019-04-30] MEDS: Silver Sulfadiazine 50 GM TUBE TOP SCH ×2 (09:41→20:38)
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
[2019-04-30] MEDS: Gabapentin 300 MG CAP PO SCH ×2 (13:21→20:37)
[2019-04-30] MEDS: Melatonin 3 MG TAB PO PRN (20:38)
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
[2019-05-01] MEDS: Ibuprofen 800 MG TAB PO SCH ×3 (04:03→18:41)
[2019-05-01] MEDS: Acetaminophen 500 MG TAB PO SCH ×4 (04:03→21:01)
[2019-05-01] MEDS: traMADol HCl 50 MG TAB PO SCH ×3 (06:02→18:40)
[2019-05-01] MEDS: Cyclobenzaprine 10 MG TAB PO PRN ×2 (07:09→15:17)
[2019-05-01] MEDS: Enoxaparin Sodium 30 MG/0.3 ML SYRINGE SC SCH ×2 (10:09→21:02)
[2019-05-01] MEDS: Bacitracin 1 PK TOP SCH ×2 (10:09→21:00)
[2019-05-01] MEDS: Ascorbic Acid 500 mg Chewable Tablet PO SCH ×2 (10:10→21:01)
[2019-05-01] MEDS: Polyethylene Glycol 3350 17 GM Packet PO SCH (10:10)
[2019-05-01] MEDS: Senokot S 8.6-50 MG TAB PO SCH ×2 (10:10→20:59)
[2019-05-01] MEDS: Gabapentin 300 MG CAP PO SCH ×3 (10:11→21:01)
[2019-05-01] MEDS: Famotidine 20 MG TAB PO SCH ×2 (10:11→21:00)
[2019-05-01] MEDS: Silver Sulfadiazine 50 GM TUBE TOP SCH ×2 (10:12→21:02)
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
[2019-05-02] MEDS: traMADol HCl 50 MG TAB PO SCH ×5 (01:05→23:15)
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
[2019-05-02] MEDS: Cyclobenzaprine 10 MG TAB PO PRN ×2 (05:39→18:33)
[2019-05-02] MEDS: Acetaminophen 500 MG TAB PO SCH ×4 (05:39→20:11)
[2019-05-02] MEDS: Ibuprofen 800 MG TAB PO SCH ×3 (05:39→20:11)
[2019-05-02] MEDS: Bacitracin 1 PK TOP SCH ×2 (08:43→20:11)
[2019-05-02] MEDS: Famotidine 20 MG TAB PO SCH ×2 (08:43→20:11)
[2019-05-02] MEDS: Gabapentin 300 MG CAP PO SCH ×3 (08:43→20:11)
[2019-05-02] MEDS: Ascorbic Acid 500 mg Chewable Tablet PO SCH ×2 (08:43→20:11)
[2019-05-02] MEDS: Enoxaparin Sodium 30 MG/0.3 ML SYRINGE SC SCH ×2 (08:43→20:11)
[2019-05-02] MEDS: Silver Sulfadiazine 50 GM TUBE TOP SCH ×2 (08:44→20:13)
[2019-05-02] MEDS: Polyethylene Glycol 3350 17 GM Packet PO SCH (08:44)
[2019-05-02] MEDS: Senokot S 8.6-50 MG TAB PO SCH ×2 (08:44→20:10)
[2019-05-02] MEDS ORDERED: PROPOFOL 200 MG/20 ML VIAL ONE (09:57)
[2019-05-02] MEDS ORDERED: Glycopyrrolate 0.2 MG/ML 5 ML SYRINGE ONE (09:57)
[2019-05-02] MEDS ORDERED: Dexamethasone 20 MG/5 ML VIAL ONE (09:57)
[2019-05-02] MEDS ORDERED: PHENYLEPHRINE-NS 100 MCG/ML 10 ML SYRINGE ONE (09:57)
[2019-05-02] MEDS ORDERED: Rocuronium Bromide 10 MG/ML (10ML VIAL) ONE (09:57)
[2019-05-02] MEDS ORDERED: Ondansetron PF 4 MG/2 ML Vial ONE (09:57)
[2019-05-02] MEDS ORDERED: Fentanyl 100 MCG/2 ML VIAL ONE ×4 (13:04→15:37)
[2019-05-02] MEDS ORDERED: Midazolam HCl 2 mg/2 ml Vial ONE (13:21)
[2019-05-02] MEDS ORDERED: Clindamycin/D5W 900 mg/50 ml Premix Bag ONE (14:04)
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
[2019-05-02 16:02] VITALS: BMI 41.9
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
[2019-05-02] MEDS: Melatonin 3 MG TAB PO PRN (23:15)
[2019-05-02] MEDS: Clindamycin/D5W 900 MG in Premix Bag 1 BAG IVPB SCH (23:15)
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
[2019-05-03] MEDS: Ibuprofen 800 MG TAB PO SCH ×3 (02:30→18:18)
[2019-05-03] MEDS: Acetaminophen 500 MG TAB PO SCH ×4 (02:30→20:37)
[2019-05-03 05:16] LABS: Band 5 % (5-11); Eosinophils 1 % (0-10); Hemoglobin 9.7 g/dL (14.0-18.0); Lymphocytes 5 % (21-51); MDiff Complete? YES; Mean Corpuscular HGB CONC 31.8 g/dL (32.0-36.0); Mean Corpuscular Hemoglobin 28.6 pg (27.0-31.0); Mean Platelet Volume 6.9 fL (7.4-10.4); Monocytes 6 % (0-10); Neutrophil 83 % (42-75); Platelet Count 775 thou/uL (130-400); Platelet Morphology Comment Appears Increased; RBC Distribution Width 13.9 % (11.5-14.5); White Blood Cell (WBC) Count 19.6 thou/uL (4.8-10.8)
[2019-05-03 05:22] LABS: Anion Gap 15 mmol/L (10-20); BUN (Urea Nitrogen) 31 mg/dL (8.4-25.7); Calc. Creatinine Clearance 174 mL/min (70-130); Calcium 8.9 mg/dL (7.8-10.44); Carbon Dioxide 24 mmol/L (22-29); Chloride 101 mmol/L (98-107); Estimated GFR-MDRD 74; Glucose 124 mg/dL (70-105); Magnesium 2.2 mg/dL (1.6-2.6); Phosphorus 4.1 mg/dL (2.3-4.7); Potassium 4.8 mmol/L (3.5-5.1); Sodium 135 mmol/L (136-145)
[2019-05-03] MEDS: Clindamycin/D5W 900 MG in Premix Bag 1 BAG IVPB SCH (05:56)
[2019-05-03] MEDS: traMADol HCl 50 MG TAB PO SCH ×3 (05:57→18:18)
[2019-05-03] MEDS: Gabapentin 300 MG CAP PO SCH ×3 (09:50→20:37)
[2019-05-03] MEDS: Senokot S 8.6-50 MG TAB PO SCH (09:50)
[2019-05-03] MEDS: Famotidine 20 MG TAB PO SCH ×2 (09:51→20:37)
[2019-05-03] MEDS: Ascorbic Acid 500 mg Chewable Tablet PO SCH ×2 (09:51→20:37)
[2019-05-03] MEDS: Polyethylene Glycol 3350 17 GM Packet PO SCH (09:51)
[2019-05-03] MEDS: Enoxaparin Sodium 30 MG/0.3 ML SYRINGE SC SCH ×2 (09:51→20:38)
[2019-05-03] MEDS: Bacitracin 1 PK TOP SCH ×2 (09:59→20:38)
[2019-05-03] MEDS: Saccharomyces boulardii 250 MG CAP PO SCH (09:59)
[2019-05-03] MEDS: Silver Sulfadiazine 50 GM TUBE TOP SCH ×2 (10:00→20:38)
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
[2019-05-03] MEDS ORDERED: Senokot S 8.6-50 MG TAB PO PRN (12:52)
[2019-05-03] MEDS ORDERED: Polyethylene Glycol 3350 17 GM Packet PO PRN (12:52)
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
[2019-05-04] MEDS: traMADol HCl 50 MG TAB PO SCH ×4 (00:28→18:09)
[2019-05-04] MEDS: Ibuprofen 800 MG TAB PO SCH ×3 (02:28→18:09)
[2019-05-04] MEDS: Acetaminophen 500 MG TAB PO SCH ×4 (02:29→20:31)
[2019-05-04 05:09] LABS: Anion Gap 13 mmol/L (10-20); BUN (Urea Nitrogen) 32 mg/dL (8.4-25.7); Calc. Creatinine Clearance 193 mL/min (70-130); Calcium 8.8 mg/dL (7.8-10.44); Carbon Dioxide 26 mmol/L (22-29); Chloride 102 mmol/L (98-107); Estimated GFR-MDRD 84; Glucose 107 mg/dL (70-105); Magnesium 2.2 mg/dL (1.6-2.6); Potassium 4.3 mmol/L (3.5-5.1); Sodium 137 mmol/L (136-145)
[2019-05-04 05:39] LABS: Hemoglobin 9.4 g/dL (14.0-18.0); Mean Corpuscular HGB CONC 33.7 g/dL (32.0-36.0); Mean Corpuscular Hemoglobin 30.7 pg (27.0-31.0); Mean Corpuscular Volume 91.3 fL (78.0-98.0); Mean Platelet Volume 7.1 fL (7.4-10.4); Platelet Count 672 thou/uL (130-400); RBC Distribution Width 13.9 % (11.5-14.5); Red Blood Cell (RBC) Count 3.04 mill/uL (4.70-6.10); White Blood Cell (WBC) Count 12.6 thou/uL (4.8-10.8)
[2019-05-04 05:42] LABS: Lymphocytes 23 % (21-51); MDiff Complete? YES; Monocytes 12 % (0-10); Neutrophil 65 % (42-75); Platelet Morphology Comment Appears Increased
[2019-05-04] MEDS: Bacitracin 1 PK TOP SCH ×2 (08:52→20:32)
[2019-05-04] MEDS: Silver Sulfadiazine 50 GM TUBE TOP SCH ×2 (08:52→20:33)
[2019-05-04] MEDS: Famotidine 20 MG TAB PO SCH ×2 (08:52→20:31)
[2019-05-04] MEDS: Saccharomyces boulardii 250 MG CAP PO SCH (08:52)
[2019-05-04] MEDS: Ascorbic Acid 500 mg Chewable Tablet PO SCH ×2 (08:52→20:32)
[2019-05-04] MEDS: Gabapentin 300 MG CAP PO SCH ×3 (08:52→20:32)
[2019-05-04] MEDS: Enoxaparin Sodium 30 MG/0.3 ML SYRINGE SC SCH ×2 (08:55→20:34)
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
[2019-05-05] MEDS: traMADol HCl 50 MG TAB PO SCH ×5 (01:24→23:40)
[2019-05-05] MEDS: Acetaminophen 500 MG TAB PO SCH ×4 (02:45→20:25)
[2019-05-05] MEDS: Ibuprofen 800 MG TAB PO SCH ×3 (04:51→18:30)
[2019-05-05] MEDS: Cyclobenzaprine 10 MG TAB PO PRN (06:56)
[2019-05-05] MEDS: Bacitracin 1 PK TOP SCH ×2 (08:51→21:02)
[2019-05-05] MEDS: Famotidine 20 MG TAB PO SCH ×2 (08:52→20:25)
[2019-05-05] MEDS: Gabapentin 300 MG CAP PO SCH ×3 (08:52→20:26)
[2019-05-05] MEDS: Saccharomyces boulardii 250 MG CAP PO SCH (08:52)
[2019-05-05] MEDS: Ascorbic Acid 500 mg Chewable Tablet PO SCH ×2 (08:52→20:25)
[2019-05-05] MEDS: Enoxaparin Sodium 30 MG/0.3 ML SYRINGE SC SCH ×2 (08:53→20:25)
[2019-05-05] MEDS: Silver Sulfadiazine 50 GM TUBE TOP SCH ×2 (08:53→20:26)
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
[2019-05-06] MEDS: Acetaminophen 500 MG TAB PO SCH ×4 (03:54→20:39)
[2019-05-06] MEDS: Ibuprofen 800 MG TAB PO SCH ×3 (04:18→18:31)
[2019-05-06] MEDS: traMADol HCl 50 MG TAB PO SCH ×2 (05:43→11:35)
[2019-05-06] MEDS: Enoxaparin Sodium 30 MG/0.3 ML SYRINGE SC SCH (08:15)
[2019-05-06] MEDS: Famotidine 20 MG TAB PO SCH (08:15)
[2019-05-06] MEDS: Ascorbic Acid 500 mg Chewable Tablet PO SCH ×2 (08:15→20:39)
[2019-05-06] MEDS: Bacitracin 1 PK TOP SCH ×2 (08:15→20:39)
[2019-05-06] MEDS: Gabapentin 300 MG CAP PO SCH ×3 (08:15→20:39)
[2019-05-06] MEDS: Saccharomyces boulardii 250 MG CAP PO SCH (08:15)
[2019-05-06] MEDS: Silver Sulfadiazine 50 GM TUBE TOP SCH ×2 (08:16→20:40)
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
[2019-05-06] MEDS ORDERED: Enoxaparin Sodium 40 MG/0.4 ML SYRINGE SC SCH (20:30)
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
[2019-05-07] MEDS: Ibuprofen 800 MG TAB PO SCH ×3 (02:44→20:23)
[2019-05-07] MEDS: Acetaminophen 500 MG TAB PO SCH ×4 (02:45→20:22)
[2019-05-07] MEDS: Cyclobenzaprine 10 MG TAB PO PRN (05:34)
[2019-05-07] MEDS: Saccharomyces boulardii 250 MG CAP PO SCH (08:22)
[2019-05-07] MEDS: Gabapentin 300 MG CAP PO SCH ×3 (08:22→20:23)
[2019-05-07] MEDS: Enoxaparin Sodium 40 MG/0.4 ML SYRINGE SC SCH ×2 (08:23→20:23)
[2019-05-07] MEDS: Ascorbic Acid 500 mg Chewable Tablet PO SCH ×2 (08:23→20:23)
[2019-05-07] MEDS: Bacitracin 1 PK TOP SCH ×2 (08:23→20:23)
[2019-05-07] MEDS: Silver Sulfadiazine 50 GM TUBE TOP SCH ×2 (08:24→20:24)
[2019-05-07 11:25] LABS: #Eosinphils 0.2 thou/uL (0.0-0.7); #Lymphocytes 1.4 thou/uL (1.20-3.40); #Monocytes 0.9 thou/uL (0.11-0.59); %Basophils 0.4 % (0.0-1.0); %Eosinophils 1.6 % (0.0-10.0); %Lymphocytes 13.1 % (21.0-51.0); %Monocytes 8.5 % (0.0-10.0); %Neutrophils 76.4 % (42.0-75.0); Hemoglobin 10.4 g/dL (14.0-18.0); Mean Corpuscular HGB CONC 32.9 g/dL (32.0-36.0); Mean Corpuscular Hemoglobin 29.5 pg (27.0-31.0); Mean Corpuscular Volume 89.5 fL (78.0-98.0); Mean Platelet Volume 6.8 fL (7.4-10.4); Platelet Count 809 thou/uL (130-400); RBC Distribution Width 13.3 % (11.5-14.5); Red Blood Cell (RBC) Count 3.52 mill/uL (4.70-6.10); White Blood Cell (WBC) Count 10.5 thou/uL (4.8-10.8)
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
[2019-05-08] MEDS: Ibuprofen 800 MG TAB PO SCH ×2 (03:49→12:30)
[2019-05-08] MEDS: Acetaminophen 500 MG TAB PO SCH ×3 (03:49→14:55)
[2019-05-08] MEDS: Enoxaparin Sodium 40 MG/0.4 ML SYRINGE SC SCH (08:33)
[2019-05-08] MEDS: Bacitracin 1 PK TOP SCH (08:33)
[2019-05-08] MEDS: Ascorbic Acid 500 mg Chewable Tablet PO SCH (08:33)
[2019-05-08] MEDS: Saccharomyces boulardii 250 MG CAP PO SCH (08:33)
[2019-05-08] MEDS: Gabapentin 300 MG CAP PO SCH (08:33)
[2019-05-08] MEDS: Silver Sulfadiazine 50 GM TUBE TOP SCH (08:33)
[2019-05-08] MEDS ORDERED: Aspirin 325 MG TAB PO SCH (09:00)
[2019-05-08 11:48] VITALS: BP 111/64; TEMP 98
[2019-05-08] MEDS: Cyclobenzaprine 10 MG TAB PO PRN (14:56)
[2019-05-08] MEDS ORDERED: Gabapentin 300 MG CAP PO SCH (21:00)
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
== END 2019-05-08 15:07 | DRG 956 ==
LOC: ERS 07:43 → CCU 09:35 → SURG A 04-26 11:46
PROVIDERS: ADMIT Surgery; ATTEND Surgery
PROC: 0QSB04Z Reposition Right Lower Femur with Internal Fixation Device, Open Approach (ICD-10-PCS; principal; 2019-04-20)
PROC: 0QSM05Z Reposition Left Tarsal with External Fixation Device, Open Approach (ICD-10-PCS; 2019-04-20)
PROC: 05H633Z Insertion of Infusion Device into Left Subclavian Vein, Percutaneous Approach (ICD-10-PCS; 2019-04-20)
PROC: 30233L1 Transfusion of Nonautologous Fresh Plasma into Peripheral Vein, Percutaneous Approach (ICD-10-PCS; 2019-04-20)
PROC: 30233N1 Transfusion of Nonautologous Red Blood Cells into Peripheral Vein, Percutaneous Approach (ICD-10-PCS; 2019-04-20)
PROC: 0QSK04Z Reposition Left Fibula with Internal Fixation Device, Open Approach (ICD-10-PCS; 2019-04-22)
PROC: 0PSL04Z Reposition Left Ulna with Internal Fixation Device, Open Approach (ICD-10-PCS; 2019-04-22)
PROC: 2W1MX6Z Compression of Left Lower Extremity using Pressure Dressing (ICD-10-PCS; 2019-04-22)
PROC: 0B9F8ZX Drainage of Right Lower Lung Lobe, Via Natural or Artificial Opening Endoscopic, Diagnostic (ICD-10-PCS; 2019-04-23)
PROC: 0B9C8ZX Drainage of Right Upper Lung Lobe, Via Natural or Artificial Opening Endoscopic, Diagnostic (ICD-10-PCS; 2019-04-23)
PROC: 0QSJ04Z Reposition Right Fibula with Internal Fixation Device, Open Approach (ICD-10-PCS; 2019-05-02)
PROC: 0QSH04Z Reposition Left Tibia with Internal Fixation Device, Open Approach (ICD-10-PCS; 2019-05-02)
PROC: 0QPJX5Z Removal of External Fixation Device from Right Fibula, External Approach (ICD-10-PCS; 2019-05-02)
DX: S06.6X9A Traumatic subarachnoid hemorrhage with loss of consciousness of unspecified duration, initial encounter (principal); S32.10XA Unspecified fracture of sacrum, initial encounter for closed fracture; S42.401B Unspecified fracture of lower end of right humerus, initial encounter for open fracture; T79.4XXA Traumatic shock, initial encounter; S72.141B Displaced intertrochanteric fracture of right femur, initial encounter for open fracture type I or II; J96.00 Acute respiratory failure, unspecified whether with hypoxia or hypercapnia; S82.892B Other fracture of left lower leg, initial encounter for open fracture type I or II; S22.31XA Fracture of one rib, right side, initial encounter for closed fracture; J98.11 Atelectasis; E87.1 Hypo-osmolality and hyponatremia; S12.100A Unspecified displaced fracture of second cervical vertebra, initial encounter for closed fracture; S82.871B Displaced pilon fracture of right tibia, initial encounter for open fracture type I or II; D62 Acute posthemorrhagic anemia; E87.2 Acidosis; N17.9 Acute kidney failure, unspecified; Z68.41 Body mass index [BMI] 40.0-44.9, adult; S27.322A Contusion of lung, bilateral, initial encounter; E83.51 Hypocalcemia; F07.81 Postconcussional syndrome; N18.3 Chronic kidney disease, stage 3 (moderate); E83.39 Other disorders of phosphorus metabolism; T17.990A Other foreign object in respiratory tract, part unspecified in causing asphyxiation, initial encounter; R50.9 Fever, unspecified; R31.9 Hematuria, unspecified; R40.2362 Coma scale, best motor response, obeys commands, at arrival to emergency department; R40.2142 Coma scale, eyes open, spontaneous, at arrival to emergency department; E66.01 Morbid (severe) obesity due to excess calories; R40.2242 Coma scale, best verbal response, confused conversation, at arrival to emergency department; T79.6XXA Traumatic ischemia of muscle, initial encounter; E83.42 Hypomagnesemia; S30.811A Abrasion of abdominal wall, initial encounter; S82.891A Other fracture of right lower leg, initial encounter for closed fracture; V69.9XXA Occupant (driver) (passenger) of heavy transport vehicle injured in unspecified traffic accident, initial encounter; Y92.410 Unspecified street and highway as the place of occurrence of the external cause; Z88.0 Allergy status to penicillin
CPT/HCPCS: 27502; 27818; 31500; 36415; 36416; 36430; 70450; 71045; 71260; 72125; 72170; 74177; 76000; 80048; 80053; 81003; 81015; 82330; 82550; 82803; 82805; 83605; 83735; 83874; 83880; 84100; 85007; 85014; 85018; 85025; 85027; 85049; 85610; 85730; 86850; 86900; 86901; 87070; 87086; 87205; 90471; 90715; 94002; 94003; 94640; 96365; 96367; 96376; C1713; C1769; G0390; J0690; J0696; J1100; J1580; J1650; J1940; J1956; J2001; J2250; J2270; J2370; J2405; J2704; J3010; J3475; J3490; J7050; J7620; P9016; P9045; P9048; Q9967; S0028

== ENCOUNTER 2019-08-13 11:13 | Outpatient (CLI) | payer OTHER ==
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
== END 2019-08-13 11:14 | disposition home or self-care (01) ==
LOC: CT 11:13
PROVIDERS: ATTEND Surgery
DX: S06.6X9D Traumatic subarachnoid hemorrhage with loss of consciousness of unspecified duration, subsequent encounter (principal); S12.9XXD Fracture of neck, unspecified, subsequent encounter
CPT/HCPCS: 70450; 72040

== ENCOUNTER 2020-04-10 11:47 | Inpatient (IN) | payer SELFPAY ==
[2020-04-10 14:15] VITALS: BMI 36.4
[2020-04-10 14:28] LABS: #Basophils 0.1 thou/uL (0.0-0.2); #Eosinphils 0.1 thou/uL (0.0-0.7); #Lymphocytes 2.2 thou/uL (1.20-3.40); #Monocytes 0.8 thou/uL (0.11-0.59); #Neutrophils 8.4 thou/uL (1.40-6.50); %Basophils 0.7 % (0.0-1.0); %Eosinophils 0.6 % (0.0-10.0); %Lymphocytes 18.6 % (21.0-51.0); %Monocytes 7.3 % (0.0-10.0); %Neutrophils 72.8 % (42.0-75.0); Mean Corpuscular Hemoglobin 29.5 pg (27.0-31.0); Mean Corpuscular Volume 89.4 fL (78.0-98.0); Mean Platelet Volume 7.7 fL (7.4-10.4); Platelet Count 292 thou/uL (130-400); RBC Distribution Width 11.9 % (11.5-14.5); White Blood Cell (WBC) Count 11.6 thou/uL (4.8-10.8)
[2020-04-10 14:41] LABS: Anion Gap 14 mmol/L (10-20); BUN (Urea Nitrogen) 21 mg/dL (8.4-25.7); CRP (Inflammatory) 1.11 mg/dL (= or < 0.5); Calc. Creatinine Clearance 131 mL/min (70-130); Calcium 9.3 mg/dL (7.8-10.44); Carbon Dioxide 28 mmol/L (22-29); Chloride 103 mmol/L (98-107); Glucose 96 mg/dL (70-105); Sodium 141 mmol/L (136-145)
[2020-04-10] MEDS ORDERED: Acetaminophen/Codeine 30-300mg Tablet PO PRN ×2 (14:42)
[2020-04-10] MEDS ORDERED: Acetaminophen 500 MG TAB PO PRN (14:44)
[2020-04-10] MEDS ORDERED: Ibuprofen 200 MG TAB PO PRN (18:51)
[2020-04-10] MEDS ORDERED: diphenhydrAMINE 50 MG CAP PO PRN (18:52)
[2020-04-10] MEDS: Senokot S 8.6-50 MG TAB PO SCH (21:37)
[2020-04-10 23:07] LABS: SARS-CoV-2 PCR by NAA Not Detected (NotDetected)
[2020-04-11] MEDS ORDERED: Fentanyl 100 MCG/2 ML VIAL ONE (07:00)
[2020-04-11] MEDS ORDERED: Lidocaine 1% (PF) 30 ML VIAL ONE (07:01)
[2020-04-11] MEDS ORDERED: Promethazine HCl 25 MG/ML VIAL SLOW IVP PRN ×2 (07:46→11:24)
[2020-04-11] MEDS ORDERED: HYDROmorphone 2 MG/ML VIAL SLOW IVP PRN ×2 (07:46→11:24)
[2020-04-11] MEDS ORDERED: PACU-Morphine 4MG/ML VIAL SLOW IVP PRN ×2 (07:46→11:24)
[2020-04-11] MEDS ORDERED: Ketorolac Tromethamine 30 MG/ML VIAL IVP PRN (07:46)
[2020-04-11] MEDS ORDERED: Morphine Sulfate 2 MG/ML SYRINGE SLOW IVP PRN ×2 (07:46→11:24)
[2020-04-11] MEDS ORDERED: Promethazine HCl 25 MG/ML VIAL IM PRN ×2 (07:46→11:24)
[2020-04-11] MEDS ORDERED: Ondansetron HCl/PF 4 MG/2 ML Vial IVP PRN ×2 (07:46→11:24)
[2020-04-11] MEDS ORDERED: Morphine 4 MG/ML VIAL ONE ×2 (07:52→11:45)
[2020-04-11] MEDS ORDERED: Levofloxacin 500 mg/D5W 100 ml Premix Bag ONE (07:53)
[2020-04-11] MEDS ORDERED: Clindamycin/D5W 900 mg/50 ml Premix Bag ONE (07:53)
[2020-04-11] MEDS: Senokot S 8.6-50 MG TAB PO SCH ×2 (07:57→21:02)
[2020-04-11] MEDS ORDERED: Ondansetron PF 4 MG/2 ML Vial ONE (09:04)
[2020-04-11] MEDS ORDERED: PHENYLEPHRINE-NS 100 MCG/ML 10 ML SYRINGE ONE (09:04)
[2020-04-11] MEDS ORDERED: Rocuronium Bromide 10 MG/ML (10ML VIAL) ONE (09:04)
[2020-04-11] MEDS ORDERED: Lidocaine 1% PF 5 ML VIAL ONE (09:04)
[2020-04-11] MEDS ORDERED: Dexamethasone 20 MG/5 ML VIAL ONE (09:04)
[2020-04-11] MEDS ORDERED: PROPOFOL 200 MG/20 ML VIAL ONE (09:04)
[2020-04-11] MEDS ORDERED: HYDROmorphone 2 MG/ML VIAL ONE (09:54)
[2020-04-11] MEDS ORDERED: SUGAMMADEX SODIUM 500 MG/5 ML VIAL ONE (09:54)
--- NOTE | 2020-04-11 15:15 | RAD ---
RIGHT FEMUR: 6 fluoroscopic images presented from OR. INDICATION: Intraoperative imaging during hardware removal and nail insertion with open reduction and internal fi xation. FINDINGS/IMPRESSION: These images demonstrate intramedullary mane in the right femur. POS: AGW
[2020-04-11] MEDS: Clindamycin/D5W 900 MG in Premix Bag 1 BAG IVPB SCH ×2 (15:56→23:51)
[2020-04-12 07:46] LABS: #Lymphocytes 1.5 thou/uL (1.20-3.40); #Monocytes 1.5 thou/uL (0.11-0.59); #Neutrophils 8.7 thou/uL (1.40-6.50); %Basophils 0.1 % (0.0-1.0); %Eosinophils 0.2 % (0.0-10.0); %Lymphocytes 12.7 % (21.0-51.0); %Monocytes 12.4 % (0.0-10.0); %Neutrophils 74.6 % (42.0-75.0); Hemoglobin 12.5 g/dL (14.0-18.0); Mean Corpuscular HGB CONC 33.6 g/dL (32.0-36.0); Mean Corpuscular Hemoglobin 30.6 pg (27.0-31.0); Mean Corpuscular Volume 91.2 fL (78.0-98.0); Mean Platelet Volume 7.8 fL (7.4-10.4); Platelet Count 239 thou/uL (130-400); RBC Distribution Width 11.8 % (11.5-14.5); Red Blood Cell (RBC) Count 4.07 mill/uL (4.70-6.10); White Blood Cell (WBC) Count 11.7 thou/uL (4.8-10.8)
[2020-04-12] MEDS: Clindamycin/D5W 900 MG in Premix Bag 1 BAG IVPB SCH (08:52)
[2020-04-12] MEDS: Senokot S 8.6-50 MG TAB PO SCH (08:53)
[2020-04-12 12:06] VITALS: BP 107/65; TEMP 97.9
[2020-04-12] MEDS ORDERED: Aspirin 81 mg Enteric Coated Tablet PO SCH (21:00)
--- NOTE | 2020-04-15 15:19 | OP ---
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 PROCEDURES PERFORMED: 1. Intramedullary nail stabilization of right femur. 2. Removal of broken curved condylar plate, right lateral femur. ANESTHESIA: General. [employer] AND FIELD COACH: Nano Ramos PA-C. ESTIMATED BLOOD LOSS: 300 mL. IMPLANTS: Synthes retrograde-antegrade femoral nail measuring 13 x 420 mm with a total of 4 cross-lock screws. COMPLICATIONS: None. DRAINS: None. SPECIMEN: Broken plate and screws removed and discarded. OUTCOME: Satisfactory. INDICATIONS: The patient is a 54-year-old gentleman who is now nearly a year status post comminuted right femoral shaft fracture treated with a curved condylar plate. This fracture extended into the supracondylar and intercondylar region of the distal femur and then spiraled up to the mid shaft of the diaphysis. After successful open reduction internal fixation, the patient did not go on to union. On multiple occasions in the clinic, the prospect of hardware revision was brought up with the patient due to the lack of progress of healing. Finally, approximately 2 weeks prior to this admission, the patient reports that he was lifting an object when he felt the femur "shift" and upon evaluation in the office was found to have a failure of the curve condylar plate with breakage of the plate and a clear nonunion at the midshaft of the femur. The distal portion of the fracture does appear healed. As such, the patient now taken to the operating room for removal of hardware and conversion to an intramedullary nail. DESCRIPTION OF PROCEDURE: The patient was brought to the operating room and a time-out performed followed by induction of general anesthesia. With my ambulance assistant's help, the patient was positioned in the left lateral decubitus position and then a sterile prep and drape was performed of the right lower extremity. Next, small stab wounds were made overlying the screw insertion sites at the proximal thigh and then percutaneously the screws were removed. An additional incision was made at the level of the plate breakage and dissection carried through the vastus lateralis and then the proximal end of the plate removed. Again through small stab wounds, additional screws in the distal portion of the plate were removed and then a 3-inch incision was made at the level of the lateral condyle of the distal femur and final screws were removed through this incision. At the completion of this, an incision was made proximal to the greater trochanter. After skin was sharply incised, dissection was carried down bluntly such as starting point for femoral nail could be palpated. A threaded guidewire was then passed at the starting point and then a reamer passed over this guidewire. While my ambulance assistant maintained anatomic alignment of the fracture, I passed a ball-tip guidewire down the shaft of the femur across the fracture and into the distal femoral metaphysis. My ambulance assistant continued to maintain reduction of the fracture while reaming was started at 8.5 mm and continued up to 14 mm. Good chatter was appreciated at approximately 12 mm. A 13 x 420 mm nail was passed over the ball-tipped guidewire again while my ambulance assistant maintained reduction of the fracture. This was delivered down into the distal femoral metaphysis. Under C-arm guidance, 2 distal cross-lock screws were placed capturing the distal segment of the bone, and then using the jig, 2 proximal cross-lock screws were introduced. This resulted in reasonably good alignment of the femur with no malrotation and appropriate positioning of hardware. These multiple small incision sites were then irrigated with bulb syringe, and my ambulance assistant and I proceeded to close these multiple incisions in layers for the larger incisions with 0 Vicryl deep followed by 2-0 Vicryl and then j carlos for the skin. J Carlos were used for the small puncture wounds from simple screw removal. At the completion of this, Xeroform gauze and tape dressing were applied to the lateral thigh and then the patient was transferred to recovery room in stable condition. There were no complications. He tolerated the procedure well. Job ID: [id number]
--- NOTE | 2020-04-15 15:19 | DIS ---
DATE OF ADMISSION: 04/10/2020 DATE OF DISCHARGE: 04/12/2020 This is Raffi Cárdenas PA-C dictating a report for Eliud Stubbs MD. PREOPERATIVE DIAGNOSIS: Nonunion femur right with hardware failure. POSTOPERATIVE DIAGNOSIS: Nonunion femur right with hardware failure. PROCEDURE: The patient underwent a revision of the right femur fracture with mane and screws. HOSPITAL STAY: Unremarkable. No complications. The patient was discharged on 04/12/2020 with instructions and will follow up in 10 to 14 days. DISCHARGE MEDICATIONS: Given with usage instructions. Call clinic if there are any questions or concerns. Job ID: [id number]
== END 2020-04-12 14:59 | disposition home or self-care (01) | DRG 481 ==
LOC: SURG A 12:28 → T4-A 04-11 03:41 → SURG A 04-11 03:42
PROVIDERS: ADMIT Orthopaedic Surgery; ATTEND Orthopaedic Surgery
PROC: 0QS606Z Reposition Right Upper Femur with Intramedullary Internal Fixation Device, Open Approach (ICD-10-PCS; principal; 2020-04-11)
PROC: 0QPB04Z Removal of Internal Fixation Device from Right Lower Femur, Open Approach (ICD-10-PCS; 2020-04-11)
DX: T84.090A Other mechanical complication of internal right hip prosthesis, initial encounter (principal); S72.8X1 Other fracture of right femur; Z88.0 Allergy status to penicillin; Z20.822 Contact with and (suspected) exposure to COVID-19
CPT/HCPCS: 36415; 76000; 80048; 85025; 85652; 86140; 87635; C1713; J1100; J1170; J1956; J2001; J2270; J2405; J2704; J3010; J3490; U0003; U0005